=== PATIENT | male | born 1965 | race Caucasian/White ===

== ENCOUNTER → 2016-09-02 | Outpatient (CLI) | payer OTHER ==
[~2016-09-02] MED LIST: AMOXICILLIN500 M2 PO; ASPIRIN81 M1 PO; ATIVAN0.5 MG PO; CARAFATE1 G1 PO; COGENTIN0.5 MG PO; GEODON80 MG PO; HYDR12.5C PO; LAMISIL250 MG PO; LIPITOR20 MG PO; LISINOPRIL10 MG PO; METOPROLOL100 MG PO; NORVASC5 MG PO; PREDNISONE10 MG PO; PROTONIX40 MG PO; VENTOLIN H0.09 MG/AC INH; ZOLPIDEM10 M1 PO
== END | disposition home or self-care (01) ==
LOC: CT 12:36
DX: Q18.0 Sinus, fistula and cyst of branchial cleft (principal)

== ENCOUNTER → 2016-10-06 | Day surgery (SDC) | payer OTHER ==
[~2016-10-06] VITALS: Ht 172.7 cm; Wt 88.5 kg
[~2016-10-06] MED LIST changes: +'XANAX1 MG PO; +ASMANEX HF200 MCG/Ac INH; +BENZTROPINE MESY1 MG PO; +DIVALPROEX SOD250 MG PO; +HYDROCODONE BIT1 T11 PO; +LISINOPRIL30 MG PO; +MIRTAZAPINE30 M2 PO; +OLANZAPINE10 MG PO; +OMNICEF300 MG PO
--- NOTE | ~2016-10-06 | O ---
[place], [place] OPERATIVE NOTE NAME: TRACY ELIZABETH UNIT #: [id number] ROOM: DOCTOR: NUBIA BLOUNT MD BIRTHDATE: [birth year] DOS: 10/06/2016 PREOPERATIVE DIAGNOSIS: Left branchial cleft cyst. POSTOPERATIVE DIAGNOSIS: Left branchial cleft cyst. PROCEDURE: Excision of left second branchial cleft cyst. SURGEON: Dr. Blount. ANESTHESIA: General endotracheal. ESTIMATED BLOOD LOSS: 25 mL. DRAINS: None. COMPLICATIONS: None. INDICATIONS: The patient is a 51-year-old white male with a left-sided neck mass. CT scan demonstrates a cystic structure 2.4 x 3.7 x 3.3 cm. It is located deep and anterior to the margin of the left sternocleidomastoid muscle and is consistent with a second branchial cleft cyst. He is being taken to the operating room for surgical excision. DESCRIPTION OF PROCEDURE: Following induction of general endotracheal anesthesia, the patient was positioned supine on the OR table. He was prepped and draped in a standard sterile fashion. A 4 cm transverse incision overlying the cystic swelling was demarcated on the patient and injected with 3 mL of 1% lidocaine with 1:100,000 epinephrine. An incision was made through skin and subcutaneous tissue. Dissection was continued through the platysma muscle. The left sternocleidomastoid muscle was identified and just anterior to the margin of the left sternocleidomastoid muscle a large cystic structure was encountered. It was dissected free of underlying connective tissue and excised completely. It was submitted to pathology for histologic analysis. Minor bleeding was controlled with electrical cautery. The wound was closed in a layered fashion with 3-0 Vicryl and 5-0 monofilament suture and a sterile dressing was applied. At the end of the case, all instrument and sponge counts were correct. The patient was awakened, extubated and transported to PACU in satisfactory condition. [place], [place] OPERATIVE NOTE NAME: TRACY ELIZABETH UNIT #: [id number] ROOM: DOCTOR: NUBIA BLOUNT MD BIRTHDATE: [birth year] NUBIA BLOUNT MD CM:RUTHORD:OPERATIVE NOTE [id number] NUBIA BLOUNT MD 10/19/16 1106 interface
[2016-10-06 08:20] VITALS: BP 179/109
[2016-10-06 10:09] VITALS: BP 156/105
[2016-10-06 10:25] VITALS: BP 160/108
[2016-10-06 10:33] VITALS: BP 144/86
[2016-10-06 10:50] VITALS: BP 138/89
[2016-10-06 11:04] VITALS: BP 122/84
== END | disposition home or self-care (01) ==
LOC: SDC 09-29 10:15
DX: Q18.0 Sinus, fistula and cyst of branchial cleft (principal); F41.9 Anxiety disorder, unspecified; F32.9 Major depressive disorder, single episode, unspecified; I10 Essential (primary) hypertension; K21.9 Gastro-esophageal reflux disease without esophagitis; F17.210 Nicotine dependence, cigarettes, uncomplicated; E78.5 Hyperlipidemia, unspecified; J43.9 Emphysema, unspecified; Z98.890 Other specified postprocedural states; Z79.899 Other long term (current) drug therapy

== ENCOUNTER → 2016-11-11 | Outpatient (CLI) | payer OTHER ==
[2016-11-11 12:29] LABS: BASO # 0.1 10*3/uL (0.0-0.1); BASO % 0.6 % (0.0-1.0); EOS # 0.4 10*3/uL (0.0-0.4); EOS % 4.2 % (1.0-4.0); HEMOGLOBIN 14.7 g/dl (14.0-18.0); IG # 0.1 10*3/uL (0.0-0.1); LYMPH # 2.9 10*3/uL (1.3-4.4); LYMPH % 27.6 % (27.0-41.0); MEAN CELL VOLUME 90.2 fl (80.0-94.0); MEAN CORPUSCULAR HGB 30.1 pg (27.0-31.0); MEAN CORPUSCULAR HGB CONC 33.4 g/dl (33.0-37.0); MEAN PLATELET VOLUME 10.7 fl (9.6-12.3); MONO # 0.8 10*3/uL (0.1-1.0); MONO % 7.6 % (3.0-9.0); NEUT # 6.1 10*3/uL (2.3-7.9); NEUT % 58.8 % (47.0-73.0); PLATELET COUNT AUTOMATED 293 10*3/uL (130-400); RED BLOOD COUNT 4.88 10*6/uL (4.50-5.90); RED CELL DISTRI WIDTH 14.2 % (0-14.5); WHITE BLOOD COUNT 10.4 10*3/uL (4.8-10.8)
[2016-11-11 12:52] LABS: HEMOGLOBIN A1c 5.5 % (4.8-5.6)
[2016-11-11 12:53] LABS: ALBUMIN 2.8 gm/dl (3.1-4.5); ALKALINE PHOSPHATASE 100 U/L (45-117); BILIRUBIN, DIRECT < 0.1 mg/dL (0.0-0.2); BILIRUBIN, TOTAL 0.3 mg/dl (0.2-1.0); BUN 10 mg/dl (7-24); CARBON DIOXIDE 30 mmol/L (21-32); CHLORIDE 107 mmol/L (98-107); CHOLESTEROL 216 mg/dL (<200); EST GLOM FILT AFRICAN AMERICAN > 60 ml/min; FREE T4 0.87 ng/dl (0.76-1.46); GLUCOSE 86 mg/dL (65-99); HDL CHOLESTEROL 52 mg/dl (40-60); LDL CHOLESTEROL 126 mg/dL (9-159); POTASSIUM 3.3 mmol/L (3.5-5.1); SGOT/AST 21 IU/L (3-35); SGPT/ALT 15 U/L (12-78); SODIUM 142 mmol/L (136-145); T3 UPTAKE 32 % (31-39); TRIGLYCERIDES 191 mg/dl (<150); VLDL CHOLESTEROL 38 mg/dL (6-40)
== END | disposition home or self-care (01) ==
LOC: LAB 11:57
PROVIDERS: Nurse Practitioner Family
DX: R79.89 Other specified abnormal findings of blood chemistry (principal); Z79.899 Other long term (current) drug therapy

== ENCOUNTER → 2017-06-02 | Outpatient (CLI) | payer OTHER ==
[2017-06-02 11:14] LABS: BASO # 0.1 10*3/uL (0.0-0.1); BASO % 0.7 % (0.0-1.0); EOS # 0.6 10*3/uL (0.0-0.4); EOS % 5.2 % (1.0-4.0); HEMATOCRIT 45.6 % (42.0-52.0); HEMOGLOBIN 14.8 g/dl (14.0-18.0); LYMPH # 2.9 10*3/uL (1.3-4.4); LYMPH % 24.2 % (27.0-41.0); MEAN CELL VOLUME 90.1 fl (80.0-94.0); MEAN CORPUSCULAR HGB 29.2 pg (27.0-31.0); MEAN CORPUSCULAR HGB CONC 32.5 g/dl (33.0-37.0); MONO # 1.1 10*3/uL (0.1-1.0); MONO % 9.1 % (3.0-9.0); NEUT # 7.2 10*3/uL (2.3-7.9); NEUT % 59.8 % (47.0-73.0); PLATELET COUNT AUTOMATED 318 10*3/uL (130-400); RED BLOOD COUNT 5.06 10*6/uL (4.50-5.90); RED CELL DISTRI WIDTH 14.7 % (0-14.5); WHITE BLOOD COUNT 12.1 10*3/uL (4.8-10.8)
[2017-06-02 11:35] LABS: ALBUMIN 3.1 gm/dl (3.1-4.5); ALKALINE PHOSPHATASE 114 U/L (45-117); BILIRUBIN, DIRECT < 0.1 mg/dL (0.0-0.2); BUN 10 mg/dl (7-24); CHLORIDE 104 mmol/L (98-107); CHOLESTEROL 213 mg/dL (<200); HDL CHOLESTEROL 55 mg/dl (40-60); LDL CHOLESTEROL 111 mg/dL (9-159); POTASSIUM 3.7 mmol/L (3.5-5.1); SGOT/AST 16 IU/L (3-35); SGPT/ALT 15 U/L (12-78); SODIUM 145 mmol/L (136-145); TOTAL PROTEIN 7.5 gm/dL (6.4-8.2); TRIGLYCERIDES 235 mg/dl (<150); VALPROIC ACID (DEPAKENE) 64.1 ug/ml (50-100); VLDL CHOLESTEROL 47 mg/dL (6-40)
== END | disposition home or self-care (01) ==
LOC: LAB 10:52
PROVIDERS: Nurse Practitioner Family
DX: Z79.899 Other long term (current) drug therapy (principal)

== ENCOUNTER → 2018-05-11 | Outpatient (CLI) | payer OTHER ==
[2018-05-11 11:56] LABS: BASO # 0.1 10*3/uL (0.0-0.1); BASO % 0.8 % (0.0-1.0); EOS # 0.3 10*3/uL (0.0-0.4); HEMATOCRIT 46.3 % (42.0-52.0); HEMOGLOBIN 15.2 g/dl (14.0-18.0); LYMPH # 2.7 10*3/uL (1.3-4.4); MEAN CELL VOLUME 89.7 fl (80.0-94.0); MEAN CORPUSCULAR HGB 29.5 pg (27.0-31.0); MEAN CORPUSCULAR HGB CONC 32.8 g/dl (33.0-37.0); MEAN PLATELET VOLUME 10.4 fl (9.6-12.3); MONO % 8.8 % (3.0-9.0); NEUT # 7.1 10*3/uL (2.3-7.9); NEUT % 61.8 % (47.0-73.0); PLATELET COUNT AUTOMATED 397 10*3/uL (130-400); RED BLOOD COUNT 5.16 10*6/uL (4.50-5.90); RED CELL DISTRI WIDTH 14.5 % (0-14.5); WHITE BLOOD COUNT 11.4 10*3/uL (4.8-10.8)
[2018-05-11 12:06] LABS: ALBUMIN 2.9 gm/dl (3.1-4.5); ALKALINE PHOSPHATASE 102 U/L (45-117); BUN 16 mg/dl (7-24); CHLORIDE 101 mmol/L (98-107); CHOLESTEROL 214 mg/dL (<200); CREATININE 1.35 mg/dL (0.70-1.30); HDL CHOLESTEROL 47 mg/dl (40-60); LDL CHOLESTEROL 131 mg/dL (9-159); POTASSIUM 3.8 mmol/L (3.5-5.1); SGOT/AST 21 IU/L (3-35); SGPT/ALT 15 U/L (12-78); SODIUM 138 mmol/L (136-145); TOTAL PROTEIN 7.5 gm/dL (6.4-8.2); TRIGLYCERIDES 182 mg/dl (<150); VLDL CHOLESTEROL 36 mg/dL (6-40)
== END | disposition home or self-care (01) ==
LOC: LAB 11:14
PROVIDERS: Emergency Medicine
DX: I10 Essential (primary) hypertension (principal); E11.9 Type 2 diabetes mellitus without complications; R73.9 Hyperglycemia, unspecified

== ENCOUNTER → 2019-02-06 | Outpatient (CLI) | payer OTHER ==
[2019-02-06 09:41] LABS: BASO # 0.1 10*3/uL (0.0-0.1); BASO % 0.6 % (0.0-1.0); EOS # 0.2 10*3/uL (0.0-0.4); EOS % 1.4 % (1.0-4.0); HEMATOCRIT 45.6 % (42.0-52.0); HEMOGLOBIN 14.9 g/dl (14.0-18.0); LYMPH # 2.7 10*3/uL (1.3-4.4); LYMPH % 23.6 % (27.0-41.0); MEAN CELL VOLUME 89.8 fl (80.0-94.0); MEAN CORPUSCULAR HGB 29.3 pg (27.0-31.0); MEAN CORPUSCULAR HGB CONC 32.7 g/dl (33.0-37.0); MEAN PLATELET VOLUME 10.6 fl (9.6-12.3); MONO # 0.8 10*3/uL (0.1-1.0); MONO % 6.8 % (3.0-9.0); NEUT # 7.7 10*3/uL (2.3-7.9); NEUT % 66.6 % (47.0-73.0); PLATELET COUNT AUTOMATED 339 10*3/uL (130-400); RED BLOOD COUNT 5.08 10*6/uL (4.50-5.90); RED CELL DISTRI WIDTH 14.6 % (0-14.5); WHITE BLOOD COUNT 11.5 10*3/uL (4.8-10.8)
[2019-02-06 10:10] LABS: CHLORIDE 105 mmol/L (98-107); POTASSIUM 3.5 mmol/L (3.5-5.1); SODIUM 141 mmol/L (136-145)
[2019-02-06 10:37] LABS: ALBUMIN 2.8 gm/dl (3.1-4.5); ALKALINE PHOSPHATASE 100 U/L (45-117); BUN 11 mg/dl (7-24); CHOLESTEROL 176 mg/dL (<200); CREATININE 1.13 mg/dL (0.70-1.30); HDL CHOLESTEROL 54 mg/dl (40-60); LDL CHOLESTEROL 91 mg/dL (9-159); SGOT/AST 28 IU/L (3-35); SGPT/ALT 20 U/L (12-78); TRIGLYCERIDES 154 mg/dl (<150); VLDL CHOLESTEROL 31 mg/dL (6-40)
== END | disposition home or self-care (01) ==
LOC: LAB 09:17
PROVIDERS: Emergency Medicine
DX: E11.42 Type 2 diabetes mellitus with diabetic polyneuropathy (principal); E78.2 Mixed hyperlipidemia; F41.9 Anxiety disorder, unspecified; G47.00 Insomnia, unspecified; I10 Essential (primary) hypertension

== ENCOUNTER → 2020-03-29 | Outpatient (CLI) | payer OTHER ==
[~2020-03-29] MED LIST changes: +MEDROL DOSEPAK4 MG PO; +ROBAXIN-750750 MG PO
[2020-03-29 10:08] LABS: BASO # 0.1 10*3/uL (0.0-0.1); BASO % 0.5 % (0.0-1.0); EOS # 0.2 10*3/uL (0.0-0.4); EOS % 1.6 % (1.0-4.0); HEMATOCRIT 45.6 % (42.0-52.0); LYMPH # 3.5 10*3/uL (1.3-4.4); LYMPH % 30.6 % (27.0-41.0); MEAN CELL VOLUME 89.8 fl (80.0-94.0); MEAN CORPUSCULAR HGB 29.5 pg (27.0-31.0); MEAN CORPUSCULAR HGB CONC 32.9 g/dl (33.0-37.0); MEAN PLATELET VOLUME 11.4 fl (9.6-12.3); MONO # 0.8 10*3/uL (0.1-1.0); MONO % 7.4 % (3.0-9.0); NEUT # 6.7 10*3/uL (2.3-7.9); NEUT % 59.2 % (47.0-73.0); PLATELET COUNT AUTOMATED 351 10*3/uL (130-400); RED BLOOD COUNT 5.08 10*6/uL (4.50-5.90); RED CELL DISTRI WIDTH 14.2 % (0-14.5); WHITE BLOOD COUNT 11.3 10*3/uL (4.8-10.8)
[2020-03-29 10:44] LABS: ALBUMIN 2.8 gm/dl (3.1-4.5); ALKALINE PHOSPHATASE 96 U/L (45-117); BUN 16 mg/dl (7-24); CHLORIDE 106 mmol/L (98-107); CHOLESTEROL 160 mg/dL (<200); CREATININE 1.05 mg/dL (0.70-1.30); HDL CHOLESTEROL 48 mg/dl (40-60); LDL CHOLESTEROL 85 mg/dL (9-159); POTASSIUM 3.1 mmol/L (3.5-5.1); SGOT/AST 41 IU/L (3-35); SGPT/ALT 34 U/L (12-78); SODIUM 143 mmol/L (136-145); TOTAL PROTEIN 6.8 gm/dL (6.4-8.2); TRIGLYCERIDES 133 mg/dl (<150); VLDL CHOLESTEROL 27 mg/dL (6-40)
[2020-03-29 10:51] LABS: THYROID STIM HORMONE (HS) 0.847 uIU/ml (0.358-4.75)
== END | disposition home or self-care (01) ==
LOC: LAB 09:36
PROVIDERS: ATTEND Emergency Medicine
DX: E11.42 Type 2 diabetes mellitus with diabetic polyneuropathy (principal); E78.2 Mixed hyperlipidemia; F41.9 Anxiety disorder, unspecified; I10 Essential (primary) hypertension; G47.00 Insomnia, unspecified

== ENCOUNTER 2020-04-01 21:47 | Emergency (ER) | payer OTHER ==
[~2020-04-01] VITALS: Ht 172.7 cm; Wt 90.7 kg
[~2020-04-01 21:47] MED LIST changes: -MEDROL DOSEPAK4 MG PO; -ROBAXIN-750750 MG PO
[2020-04-01] MEDS ORDERED: ROBAXIN-750750 MG PO (22:52)
[2020-04-01] MEDS ORDERED: MEDROL DOSEPAK4 MG PO (22:52)
== END 2020-04-01 22:59 | disposition home or self-care (01) ==
LOC: ED 21:47
DX: S39.012A Strain of muscle, fascia and tendon of lower back, initial encounter (principal); Z79.899 Other long term (current) drug therapy; Z79.82 Long term (current) use of aspirin; Z98.890 Other specified postprocedural states; X50.1XXA Overexertion from prolonged static or awkward postures, initial encounter; Y93.89 Activity, other specified; Y92.098 Other place in other non-institutional residence as the place of occurrence of the external cause; Y99.8 Other external cause status

== ENCOUNTER 2020-10-26 08:58 | Emergency (ER) | payer OTHER ==
[~2020-10-26] VITALS: Ht 172.7 cm; Wt 90.7 kg
[~2020-10-26 08:58] MED LIST changes: +MEDROL DOSEPAK4 MG PO; +ROBAXIN-750750 MG PO
[2020-10-26] MEDS ORDERED: CYCLOBENZAPRINE10 MG PO (09:19)
[2020-10-26] MEDS ORDERED: PREDNISONE50 MG PO (09:19)
[2020-10-26] MEDS ORDERED: HYDROCODONE-AC1 EAC1 PO (09:19)
== END 2020-10-26 09:25 | disposition home or self-care (01) ==
LOC: ED 08:58
DX: S39.012A Strain of muscle, fascia and tendon of lower back, initial encounter (principal); I10 Essential (primary) hypertension; Z79.899 Other long term (current) drug therapy; Z79.82 Long term (current) use of aspirin; Z98.890 Other specified postprocedural states; X58.XXXA Exposure to other specified factors, initial encounter; Y93.89 Activity, other specified; Y92.89 Other specified places as the place of occurrence of the external cause; Y99.8 Other external cause status

== ENCOUNTER 2022-08-03 13:59 | Emergency (ER) | payer OTHER ==
[~2022-08-03] VITALS: Ht 172.7 cm; Wt 90.7 kg
[~2022-08-03 13:59] MED LIST changes: +CYCLOBENZAPRINE10 MG PO; +HYDROCODONE-AC1 EAC1 PO; +PREDNISONE50 MG PO
[2022-08-03 15:08] LABS: BASO # 0.1 10*3/uL (0.0-0.1); BASO % 0.7 % (0.0-1.0); EOS # 0.1 10*3/uL (0.0-0.4); EOS % 0.5 % (1.0-4.0); HEMATOCRIT 43.4 % (42.0-52.0); LYMPH # 2.6 10*3/uL (1.3-4.4); LYMPH % 24.1 % (27.0-41.0); MEAN CELL VOLUME 93.7 fl (80.0-94.0); MEAN CORPUSCULAR HGB 30.7 pg (27.0-31.0); MEAN CORPUSCULAR HGB CONC 32.7 g/dl (33.0-37.0); MEAN PLATELET VOLUME 10.8 fl (9.6-12.3); MONO # 1.1 10*3/uL (0.1-1.0); MONO % 10.7 % (3.0-9.0); NEUT # 6.8 10*3/uL (2.3-7.9); NEUT % 63.1 % (47.0-73.0); PLATELET COUNT AUTOMATED 303 10*3/uL (130-400); RED BLOOD COUNT 4.63 10*6/uL (4.50-5.90); RED CELL DISTRI WIDTH 15.7 % (0-14.5); WHITE BLOOD COUNT 10.7 10*3/uL (4.8-10.8)
[2022-08-03 15:27] LABS: ALKALINE PHOSPHATASE 79 U/L (46-116); BUN 9 mg/dl (9-23); CHLORIDE 104 mmol/L (98-107); POTASSIUM 3.4 mmol/L (3.4-5.1); SGPT/ALT 13 U/L (10-49); TOTAL PROTEIN 6.1 gm/dL (6.0-8.0)
[2022-08-03] MEDS ORDERED: INDOMETHACIN50 MG PO (16:19)
== END 2022-08-03 16:31 | disposition home or self-care (01) ==
LOC: ED 13:59
PROVIDERS: Family Medicine
DX: M10.9 Gout, unspecified (principal); I10 Essential (primary) hypertension; K21.9 Gastro-esophageal reflux disease without esophagitis; F41.9 Anxiety disorder, unspecified; F32.A Depression, unspecified; E78.5 Hyperlipidemia, unspecified; Z98.890 Other specified postprocedural states

== ENCOUNTER 2022-11-08 09:47 | Emergency (ER) | payer OTHER ==
[~2022-11-08] VITALS: Ht 172.7 cm; Wt 90.7 kg
[~2022-11-08 09:47] MED LIST changes: +INDOMETHACIN50 MG PO
== END 2022-11-08 12:04 | disposition home or self-care (01) ==
LOC: ED 09:47
DX: M25.562 Pain in left knee (principal); M79.674 Pain in right toe(s); M79.672 Pain in left foot; I10 Essential (primary) hypertension; K21.9 Gastro-esophageal reflux disease without esophagitis; F41.9 Anxiety disorder, unspecified; F32.A Depression, unspecified; E78.5 Hyperlipidemia, unspecified; Z98.890 Other specified postprocedural states